=== PATIENT | male | born 1995 | race Caucasian/White ===

== ENCOUNTER 2021-07-06 03:10 | Emergency (ER) | payer OTHER ==
[~2021-07-06] VITALS: Ht 177.8 cm; Wt 86.4 kg
[2021-07-06 03:43] LABS: BASO # 0.1 K/mm3 (0.0-0.2); BASO % 1.2 % (0.0-2.0); EOS # 0.6 K/mm3 (0.0-0.7); EOS % 8.1 % (0-4.0); GRAN # 3.7 K/mm3 (1.4-6.5); GRAN % 49.9 % (42.2-75.2); HEMATOCRIT 41.8 % (42.0-52.0); HEMOGLOBIN 14.7 g/dl (13.5-18.0); LYMPH # 2.4 K/mm3 (1.2-3.4); LYMPH % 32.3 % (20.0-51.0); MEAN CELL VOLUME 90 fl (80.0-100.0); MEAN CORPUSCULAR HEMOGLOBIN 32 pg (27.0-31.0); MEAN CORPUSCULAR HGB CONC 35 g/dl (33.0-37.0); MEAN PLATELET VOLUME 8.6 fl (7.4-10.4); MONO # 0.6 K/mm3 (0.1-0.6); MONO % 8.2 % (1.7-9.3); PLATELET COUNT 347 K/mm3 (130-400); RED BLOOD COUNT 4.64 M/mm3 (4.20-5.60)
[2021-07-06 04:23] LABS: ALBUMIN 4.6 gm/dL (3.5-5.0); BILIRUBIN,TOTAL 0.3 mg/dL (0.2-1.2); CALCIUM 9.1 mg/dL (8.4-10.2); CREATININE, serum 1.02 mg/dL (0.72-1.25); POTASSIUM 3.4 mmol/L (3.5-4.5); TOTAL PROTEIN 7.8 gm/dL (6.2-8.1)
[2021-07-06 07:11] VITALS: TEMP 97.8
[2021-07-06 07:44] LABS: TRICYCLIC ANTIDEPRESS URINE NEGATIVE
[2021-07-06 12:36] VITALS: BP 123/62
[2021-07-06 16:55] VITALS: PULSE 70
== END 2021-07-06 16:55 ==
LOC: COL.ER 03:10 → EDBD 03:10 → COL.ER 16:55
PROVIDERS: Personal Emergency Response Attendant
DX: F10.129 Alcohol abuse with intoxication, unspecified (principal); F32.A Depression, unspecified; F29 Unspecified psychosis not due to a substance or known physiological condition; Y90.7 Blood alcohol level of 200-239 mg/100 ml
CPT/HCPCS: J1630; J2060; J7030